=== PATIENT | male | born 1930 | race Caucasian/White ===

== ENCOUNTER 2017-06-29 13:57 | Emergency (ER) | payer OTHER ==
--- NOTE | 2017-06-29 15:50 | EDPHY ---
H & P Smoking Status: Never smoked Time Seen by Provider: 06/29/17 14:28 HPI/ROS: CHIEF COMPLAINT: Fall, facial injuries HISTORY OF PRESENT ILLNESS: 87-year-old male presents to the emergency department after he had a mechanical fall and sustained facial injuries. The patient tripped over some flag stone and fell face 1st. He did not lose consciousness. The incident happened just prior to arrival. He denies a headache. Denies neck pain. Denies chest pain or difficulty breathing. Denies any presyncopal symptoms prior to his fall. Denies injury to his upper or lower extremities. REVIEW OF SYSTEMS: Constitutional: No fever, no chills. Eyes: No double or blurry vision. ENT: No sore throat. Respiratory: No cough, no shortness of breath. Cardiac: No chest pain. Gastrointestinal: No abdominal pain, vomiting or diarrhea. Genitourinary: No dysuria. Musculoskeletal: No neck or back pain. Skin: Multiple facial lacerations. No rashes. Neurological: No headache. (Sita Llily) Past Medical/Surgical History: Hypertension, BPH, hypothyroidism (Sita Lilly M) Social History: (Sita Lilly) Physical Exam: General Appearance: Alert, no distress. Mentating normally and answering questions appropriately. Eyes: Pupils equal and round. Extraocular motions are all intact. ENT: Mouth: Mucous membranes moist. No dental injury or malocclusion. Respiratory: No wheezing, rhonchi, or rales, lungs are clear to auscultation. Cardiovascular: Regular rate and rhythm. Gastrointestinal: Abdomen is soft and nontender, no masses, no rebound or guarding, bowel sounds normal. Neurological: Alert and oriented x 3, cranial nerves II through XII grossly intact Skin: 2 cm left upper lip laceration. Does not cross vermilion border. It is a through and through laceration with small superficial laceration to the buccal mucosa of the upper lip. There is also 1.5 cm laceration the left eyebrow. Warm and dry, no rashes. Musculoskeletal: Nontender to palpate along the cervical, thoracic or lumbar spine. Neck is supple. Extremities: Full range of motion and no peripheral edema. Psychiatric: Patient is oriented X 3, there is no agitation. (Sita Lilly M) Constitutional: Initial Vital Signs Temperature (C) 36.4 C 06/29/17 14:01 Heart Rate 79 06/29/17 14:01 Respiratory Rate 16 06/29/17 14:01 Blood Pressure 213/99 H 06/29/17 14:01 O2 Sat (%) 94 06/29/17 14:01 O2 Delivery Mode Room Air Allergies/Adverse Reactions: No Known Allergies Allergy (Unverified 11/08/13 15:00) Home Medications: Medication Instructions Recorded Avodart 0.5 MG (RX) 11/08/13 Doxazosin Mesylate 11/08/13 Flomax 0.4 MG (RX) 11/08/13 Levothyroxine 06/29/17 Medical Decision Making - Diagnostics Imaging: Discussed imaging studies w/ order caller Radiologist Procedures: Laceration repair #1. Verbal consent was obtained from the patient. The 1.5 cm laceration on the left eyebrow was anesthetized using 1% lidocaine with epinephrine. The wound was irrigated with saline, draped and explored to its base with a gloved finger. There were no deep structures involved. The wound was repaired with 6 0 Prolene, 5 sutures. The wound repair was simple. The procedure was performed by myself. Laceration repair #2. Verbal consent was obtained from the patient. The 2 cm laceration on the left upper lip was anesthetized using 1% lidocaine with epinephrine. The wound was irrigated with saline, draped and explored to its base with a gloved finger. There were no deep structures involved. The wound was repaired with 6 0 Prolene , 7 sutures. The wound repair was simple. The procedure was performed by myself. (Sita Lilly) ED Course/Re-evaluation: 87-year-old male presents with facial injuries. The wounds were repaired, see procedure note. CT imaging of the head was negative for intracranial bleeding or fractures. (Sita Lilly) I did not see this patient while he was in the emergency department. However his care was discussed with the PA while the patient was in the department. I agree with treatment plan and management (Joe Sy) Differential Diagnosis: Head injury including but not limited to concussion, skull fracture, intraparenchymal contusion, subarachnoid, subdural and epidural hematoma. (Sita Lilly) Departure - Departure Disposition: Home, Routine, Self-Care Clinical Impression: Head injury, Face lacerations Condition: Good Instructions: Care For Your Stitches (ED), Laceration (ED), Head Injury (ED), Acute Wounds (ED) Additional Instructions: Wound Care Follow-Up: Removal of sutures in 7 days. Suture removal is complimentary in uncomplicated cases. Infection or abnormal findings would require reevaluation by the MD. In that case, you may be billed. Avoid any activity that might put you at risk for another head injury for at least 1 week. Return if he developed worsening headache, vomiting, altered mental status, or any other concerns. Referrals: Abel Khan MD [Primary Care Provider] - As per Instructions
[2017-06-29 16:04] VITALS: BP 150/90
== END 2017-06-29 16:02 | disposition home or self-care (01) ==
PROC: 0CQ0XZZ Repair Upper Lip, External Approach (ICD-10-PCS; principal; 2017-06-29)
PROC: 0HQ1XZZ Repair Face Skin, External Approach (ICD-10-PCS; principal; 2017-06-29)
DX: S09.90XA Unspecified injury of head, initial encounter (principal); S01.112A Laceration without foreign body of left eyelid and periocular area, initial encounter; S01.511A Laceration without foreign body of lip, initial encounter; I10 Essential (primary) hypertension; W01.0XXA Fall on same level from slipping, tripping and stumbling without subsequent striking against object, initial encounter